=== PATIENT | female | born 1975 ===

== ENCOUNTER 2022-10-19 06:00 | Day surgery (SDC) | payer OTHER ==
[~2022-10-19 06:00] MED LIST: LOSARTAN POTASS50 MG PO; NORVASC2.5 M1 PO; PROTONIX40 MG PO
== END 2022-10-19 17:15 | disposition home or self-care (01) ==
LOC: CIR.AMB 06:00
PROVIDERS: ATTEND Colon & Rectal Surgery
DX: K60.3 Anal fistula (principal); K62.89 Other specified diseases of anus and rectum; Z88.2 Allergy status to sulfonamides; Z88.6 Allergy status to analgesic agent; Z91.013 Allergy to seafood; I10 Essential (primary) hypertension; F17.210 Nicotine dependence, cigarettes, uncomplicated